=== PATIENT | male | born 2000 | race African-American/Black ===

== ENCOUNTER 2022-09-13 22:43 | Emergency (ER) | payer OTHER, SELFPAY ==
[2022-09-13] MEDS ORDERED: Boostrix 0.5 ML (Tdap) VIAL (>/=7 yrs of age) ONE (23:54)
[2022-09-13] MEDS ORDERED: Acetaminophen 500 MG TAB ONE (23:54)
[2022-09-13] MEDS ORDERED: Ibuprofen 800 MG TAB ONE (23:54)
[2022-09-13] MEDS ORDERED: Bacitracin 1 PK ONE (23:55)
== END 2022-09-14 00:15 | disposition home or self-care (01) ==
LOC: ERS 22:43
DX: S01.01XA Laceration without foreign body of scalp, initial encounter (principal); V86.99XA Unspecified occupant of other special all-terrain or other off-road motor vehicle injured in nontraffic accident, initial encounter; Z23 Encounter for immunization
CPT/HCPCS: 12001; 70450; 72125; 90471; 90715; G0390